=== PATIENT | male | born 1940 | race Caucasian/White ===

== ENCOUNTER 2021-03-01 11:43 | Emergency (ER) | payer OTHER, MEDICARE, SELFPAY ==
[2021-03-01] VITALS (18 sets, daily range): BP systolic 149–175; BP diastolic 80–95; PULSE 58–98; RESP 17–28; TEMP 36.8; O2SAT 86–98; BMI 22.4
--- NOTE | 2021-03-01 12:59 | XRR_ITS ---
PROCEDURE INFORMATION: Exam: XR Right Ribs with PA Chest Exam date and time: 03/01/2021 12:59 PM Age: 80 years old Clinical indication: Chest wall pain and painful respiration; Right; Additional info: Sob/injury TECHNIQUE: Imaging protocol: XR Right ribs with PA chest. Views: 3 views COMPARISON: CR Chest 1 [place] [id number] 07/01/2017 5:52 PM FINDINGS: Lungs: Unremarkable. No consolidation. Pleural spaces: Unremarkable. No pleural effusion. No pneumothorax. Heart/Mediastinum: Unremarkable. No cardiomegaly. Bones/joints: Unremarkable. XR/XR ribs RT mn 3V w CXR1V [id number] IMPRESSION: No acute findings.
--- NOTE | 2021-03-01 13:01 | ECG_ITS ---
[facility] Test Date: 2021-03-01 Pat Name: Jean Carlos Morfin Department: Room: Gender: Male Global President: : 1940 Requested By: Chase Villasenor Order Number: [id number] Cole MD: Chantel Camp M.D. Measurements Intervals [place] Rate: 62 P: 42 HI: 202 QRS: 7 QRSD: 101 T: 38 QT: 416 QTc: 425 Interpretive Statements SINUS RHYTHM Compared to ECG 07/01/2017 17:39:37 No significant changes Electronically Signed On 03-02-2021 17:40:19 CDT by Chantel Camp M.D. [id number] f
--- NOTE | 2021-03-01 13:01 | ED_ITS ---
HPI - SOB/Dyspnea General: Chief Complaint: Shortness of Breath/Dyspnea Stated Complaint: Trouble breathing Time Seen by Provider: 03/01/21 12:56 History of Present Illness: HPI Narrative: This patient is an 80-year-old male who states that he had a fall 1 week ago and is complaining of right rib pain causing him to be short of breath. Patient states that shortness of breath is continued. No obvious signs of bruising on the patient but patient does have p ain with palpation of the ribs. Patient denies fever. Denies cough. Will do medical evaluation treat as needed. MD elicited complaint: shortness of breath and pain with inspiration Onset (ago): week(s) Context: trauma/injury Timing: constant Severity: moderate Exacerbating factors: movement Relieving factors: nothing Associated symptoms: Deny abdominal pain, chest pain, extremity pain, fever(s), lightheadedness, nausea, palpitations or vomiting Review of Systems General: Reports: 10 or more systems reviewed and unremarkable except in HPI and below Const: Denies: fever(s), chills, body aches or fatigue Eyes: Denies: change in vision or blurry vision ENMT: Denies: throat pain, hoarseness or mouth pain Card: Denies: chest pain, palpitations, irregular heart rhythm, edema, swelling of feet/ankles or lightheadedness Resp: Reports: dyspnea and other (Rib Pain); Denies: productive cough, non-productive cough, wheezing or pain on inspiration GI: Denies: abdominal pain, nausea or vomiting : Denies: flank pain, dysuria, urinary frequency, urinary urgency or urinary hesitancy Musc: Denies: neck pain, back pain, extremity pain, extremity swelling, joint pain, joint swelling, joint redness, joint warmth or limited range of motion Skin/Breast: Denies: rash, pruritus, erythema or skin tenderness Neuro: Denies: headache(s), numbness in extremities or weakness in extremities Psych: Denies: anxiety or depression Physical Exam Const: COMMON NORMALS: no acute distress, average body habitus, patient oriented x3, no limitations, healthy appearing, alert and well nourished HENMT: COMMON NORMALS: normocephalic, atraumatic, hearing grossly normal bilaterally, external ears normal, EAC's normal, TM's normal bilaterally, Normal external nose present, Normal nasal mucous membranes and turbinates present, moist oral mucous membranes, oropharynx normal, dentition normal and gingiva normal HEAD & SCALP: normocephalic and atraumatic NOSE: Normal external nose present and Normal nasal mucous membranes and turbinates present EXTERNAL EAR: Yes external ears normal EXTERNAL AUDITORY CANAL: EAC's normal TYMPANIC MEMBRANE: TM's normal bilaterally Neck/C-Spine: COMMON NORMALS: full ROM, no lymphadenopathy, supple, no meningeal signs, no JVD, Thyroid normal and No carotid bruits THYROID: Thyroid normal Chest: COMMONS NORMALS: normal inspection of the chest, normal inspection of the breasts and normal palpation of the breasts CHEST: Yes tenderness rib (Right-sided rib pain.) Breast/axilla inspection: Yes normal inspection of the breasts BREAST/AXILLA PALPATION: Yes normal palpation of the breasts Resp: COMMON NORMALS: normal respiratory effort, No retractions, No use of accessory muscles, clear to auscultation bilaterally and percussion normal AUSCULTATION: clear to auscultation bilaterally PERCUSSION: percussion normal Cardio: COMMON NORMALS: no JVD, regular rate, regular rhythm, S1 normal heart sound present, S2 normal heart sound present, No gallops present (Cardio), No clicks present (Cardio), No murmurs present (Cardio), No rub (Cardio) and Peripheral pulses 2+ throughout RATE: regular rate RHYTHM: regular rhythm HEART SOUNDS: S1 normal heart sound present and S2 normal heart sound present PERIPHERAL PULSES: Peripheral pulses 2+ throughout GI: COMMON NORMALS: Normal to inspection, nondistended, normoactive bowel sounds present, Soft to palpation, non-tender, No hepatosplenomegaly present, no masses and no bruits PALPATION: Yes Soft to palpation and Yes No hepatosplenomegaly present : COMMON NORMALS: Yes no CVA tenderness BLADDER/KIDNEY EXAM: Yes no CVA tenderness Back/Pelvis: COMMON NORMALS: no CVA tenderness, thoracic and lumbar spine normal to inspection, no thoracic nor lumbar tenderness, thoraco-lumbar ROM normal and straight leg raise negative bilaterally Extremity: COMMON NORMALS: normal to inspection, full ROM, capillary refill normal, no joint enlargement, no clubbing, cyanosis or edema, no calf tenderness and no pedal edema Neuro: COMMON NORMALS: patient oriented x3 SENSORIUM/ORIENTATION: Yes alert MENINGEAL SIGNS: Yes no meningeal signs Course Reevaluation(s): Reevaluation #1: Elevated D-dimer. Will order CT angio rule out PE Time: 15:10 Reevaluation #2: Negative evaluation in the emergency department. Patient is to take medication as instructed. Follow-up primary care physician in 2 to 3 days. Continue all home medications. Time: 16:38 Vital Signs: Vital signs: Vital Signs Temperature 98.2 F 03/01/21 11:50 Pulse Rate 58 L 03/01/21 15:00 Respiratory Rate 28 H 03/01/21 13:17 Blood Pressure 156/81 03/01/21 15:00 Pulse Oximetry 96 03/01/21 15:00 MDM - SOB/Dyspnea MDM Narrative: Medical decision making narrative: This patient is an 80-year-old male who states that he had a fall 1 week ago and is complaining of right rib pain causing him to be short of breath. Patient states that shortness of breath is continued. No obvious signs of bruising on the patient but patient does have pain with palpation of the ribs. Patient denies fever. Denies cough. Will do medical evaluation treat as needed. Negative evaluation in the emergency department. Patient is to take medication as instructed. Follow-up primary care physician in 2 to 3 days. Continue all home medications. Medical Records: Attestation: I reviewed the patient's medical records. Lab Data: Attestation: I reviewed the patient's lab results. Labs: Lab Results 03/01/21 03/01/21 03/01/21 Range/Units 13:56 13:56 13:56 WBC 3.9 L (4.0-10.0) 10^3/ uL RBC 3.95 L (4.1-5.3) 10^6/u L Hgb 11.1 L (11.7-16.6) g/dL Hct 34.1 L (42.0-52.0) % MCV 86.3 (80-94) fl MCH 28.1 (28.0-34.0) pg MCHC 32.6 (30.0-36.0) g/dL RDW 14.4 (12.1-15.1) % Plt Count 227 (130-400) 10^3/c mm MPV 8.4 (7.4-10.4) fL Neut % (Auto) 35.1 % Lymph % (Auto) 51.5 % [place] % (Auto) 11.6 % Eos % (Auto) 1.0 % Baso % (Auto) 0.3 % Neut # (Auto) 1.36 L (1.8-7.7) 10^3/u L Lymph # (Auto) 2.0 (0.8-4.8) 10^3/u L [place] # (Auto) 0.5 (0.2-0.9) 10^3/u L Eos # (Auto) 0.0 (0.0-0.8) 10^3/u L Baso # (Auto) 0.0 (0.0-0.1) 10^3/u L Nucleated RBC % (a uto) 0 % Nucleated RBCs # 0.0 /100WBC PT 15.30 H (12.1-14.9) SECO NDS INR 1.18 (0.8-1.2) APTT 31.8 (23.9-36.7) SECO NDS D-Dimer 1.69 H (0-0.59) ug/mIFE U Sodium 135 L (136-145) mmol/L Potassium 3.5 (3.5-5.1) mmol/L Chloride 95 L (98-107) mmol/L Carbon Dioxide 31 H (22-29) mmol/L Anion Gap 12.5 (5-19) BUN 6 L (8-23) mg/dL Creatinine 0.7 (0.7-1.2) mg/dL GFR Calculation Not Reportable Glucose 103 (65-115) mg/dL Calculated Osmolal ity 278 L (285-295) mOsm/k g Calcium 8.6 (8.5-10.5) mg/dL Total Bilirubin 0.5 (0.15-1.2) mg/dL AST 26 (0-40) U/L ALT 14 (0-41) U/L Alkaline Phosphata se 100 (40-130) IU/L Troponin T Baselin e (0-15) ng/L NT-Pro-B Natriuret Pep 178 (0-450) pg/mL Total Protein 7.6 (6.6-8.7) g/dL Albumin 3.6 (3.5-5.2) g/dL Globulin 4.0 (1.3-4.6) g/dL 03/01/21 Range/Units 13:56 WBC (4.0-10.0) 10^3/ uL RBC (4.1-5.3) 10^6/u L Hgb (11.7-16.6) g/dL Hct (42.0-52.0) % MCV (80-94) fl MCH (28.0-34.0) pg MCHC (30.0-36.0) g/dL RDW (12.1-15.1) % Plt Count (130-400) 10^3/c mm MPV (7.4-10.4) fL Neut % (Auto) % Lymph % (Auto) % [place] % (Auto) % Eos % (Auto) % Baso % (Auto) % Neut # (Auto) (1.8-7.7) 10^3/u L Lymph # (Auto) (0.8-4.8) 10^3/u L [place] # (Auto) (0.2-0.9) 10^3/u L Eos # (Auto) (0.0-0.8) 10^3/u L Baso # (Auto) (0.0-0.1) 10^3/u L Nucleated RBC % (a uto) % Nucleated RBCs # /100WBC PT (12.1-14.9) SECO NDS INR (0.8-1.2) APTT (23.9-36.7) SECO NDS D-Dimer (0-0.59) ug/mIFE U Sodium (136-145) mmol/L Potassium (3.5-5.1) mmol/L Chloride (98-107) mmol/L Carbon Dioxide (22-29) mmol/L Anion Gap (5-19) BUN (8-23) mg/dL Creatinine (0.7-1.2) mg/dL GFR Calculation Glucose (65-115) mg/dL Calculated Osmolal ity (285-295) mOsm/k g Calcium (8.5-10.5) mg/dL Total Bilirubin (0.15-1.2) mg/dL AST (0-40) U/L ALT (0-41) U/L Alkaline Phosphata se (40-130) IU/L Troponin T Baselin e 15 (0-15) ng/L NT-Pro-B Natriuret Pep (0-450) pg/mL Total Protein (6.6-8.7) g/dL Albumin (3.5-5.2) g/dL Globulin (1.3-4.6) g/dL Imaging Data^: CXR: Attestation: I personally reviewed and interpreted this imaging study as follows: My impression: Negative for acute findings. CT Chest: Attestation: I personally reviewed and interpreted this imaging study as follows: Radiologist's impression: IMPRESSION: 1. Negative for proximal pulmonary embolism. 2. Hepatic cyst stable since prior examination 3. Status post cholecystectomy 4. Otherwise negative examination EKG Data^: EKG 1: Attestation: I personally reviewed and interpreted this EKG as follows: EKG Interpretation Date: 03/01/21 EKG interpretation time: 13:40 Prior EKG tracings: not available for review Interpretation: Sinus rhythm normal EKG heart rate 62 EKG 2: Attestation: I personally reviewed and interpreted this EKG as follows: EKG Interpretation Date: 03/01/21 EKG interpretation time: 15:07 Prior EKG tracings: available for review Interpretation: Sinus bradycardia rate 58 otherwise normal EKG Discharge Plan Discharge Patient Disposition: Home Clinical Impression: Rib pain on right side Condition: Stable Prescriptions: New benzonatate [Tessalon Perles] 100 mg capsule 100 mg PO BID PRN (Reason: cough) Qty: 20 RF: 0 Discharge Orders: Discharge ED (Routine); Ordered 03/01/21 Ordered By: Chase Villasenor Discharge Diet: Advance as tolerated Discharge Activity: Resume usual activity Patient Instructions: Opioid Safety Activity Restrictions/Additional Instructions: Negative evaluation in the emergency department. Patient is to take medication as instructed. Follow-up primary care physician in 2 to 3 days. Continue all home medications. Coding Level of Care Code ED Marketing Research Analyst for Chg Fwd Exam Comprehensive
[2021-03-01] MEDS: acetaminophen 325 mg Tablet 650 MG PO (13:14)
[2021-03-01 14:04] LABS: Basophils % 0.3 %; Hematocrit 34.1 % (42.0-52.0); Hemoglobin 11.1 g/dL (11.7-16.6); Lymphocytes % 51.5 %; Mean Corpuscular HGB Conc 32.6 g/dL (30.0-36.0); Mean Corpuscular Hemoglobin 28.1 pg (28.0-34.0); Mean Corpuscular Volume 86.3 fl (80-94); Mean Platelet Volume 8.4 fL (7.4-10.4); Monocytes # 0.5 10^3/uL (0.2-0.9); Monocytes % 11.6 %; Neutrophils # 1.36 10^3/uL (1.8-7.7); Neutrophils % 35.1 %; Nucleated Red Blood Cells % 0 %; Platelet Count 227 10^3/cmm (130-400); Red Blood Count 3.95 10^6/uL (4.1-5.3); Red Cell Distribution Width 14.4 % (12.1-15.1); White Blood Count 3.9 10^3/uL (4.0-10.0)
[2021-03-01 14:21] LABS: INR 1.18 (0.8-1.2)
[2021-03-01 14:22] LABS: Partial Thromboplastin Time 31.8 SECONDS (23.9-36.7)
[2021-03-01 14:25] LABS: D Dimer 1.69 ug/mIFEU (0-0.59)
[2021-03-01 14:28] LABS: Troponin(5th) Baseline 15 ng/L (0-15)
[2021-03-01 14:37] LABS: Alanine Aminotransferase 14 U/L (0-41); Albumin Level 3.6 g/dL (3.5-5.2); Alkaline Phosphatase 100 IU/L (40-130); Anion Gap 12.5 (5-19); Aspartate Amino Transferase 26 U/L (0-40); Blood Urea Nitrogen 6 mg/dL (8-23); Calcium 8.6 mg/dL (8.5-10.5); Carbon Dioxide 31 mmol/L (22-29); Chloride 95 mmol/L (98-107); Glucose 103 mg/dL (65-115); NT Pro B Type Natriuretic Pept 178 pg/mL (0-450); Osmolality Calculated 278 mOsm/kg (285-295); Potassium 3.5 mmol/L (3.5-5.1); Sodium 135 mmol/L (136-145); Total Bilirubin 0.5 mg/dL (0.15-1.2); Total Protein 7.6 g/dL (6.6-8.7)
--- NOTE | 2021-03-01 15:01 | ECG_ITS ---
[facility] Test Date: 2021-03-01 Pat Name: Jean Carlos Morfin Department: Room: Gender: Male Risk Control Specialist: : 1940 Requested By: Chase Villasenor Order Number: [id number] Cole MD: Chantel Camp M.D. Measurements Intervals [place] Rate: 58 P: 35 GA: 199 QRS: 7 QRSD: 108 T: 34 QT: 412 QTc: 407 Interpretive Statements SINUS BRADYCARDIA Compared to ECG 03/01/2021 13:40:15 Sinus rhythm no longer present Electronically Signed On 03-02-2021 18:10:21 CDT by Chantel Camp M.D. [id number] f
--- NOTE | 2021-03-01 15:08 | CTR_ITS ---
PROCEDURE INFORMATION: Exam: CTA Chest With Contrast Exam date and time: 03/01/2021 3:08 PM Age: 80 years old Clinical indication: Injury or trauma; Blunt trauma (contusions or hematomas); Patient HX: Fall 1 week ago C/O R rib pain w SOB and elev d-dimer; Additional info: SOB with elevated ddimer TECHNIQUE: Imaging protocol: Computed tomographic angiography of the chest with contrast. 3D rendering (Not supervised by radiologist): MIP and/or 3D reconstructed images were created by the technologist. Radiation optimization: All CT scans at this facility use at least one of these dose optimization techniques: automated exposure control; mA and/or kV adjustment per patient size (includes targeted exams where dose is matched to clinical indication); or iterative reconstruction. Contrast material: OMNI 350; Contrast volume: 95 ml; Contrast route: INTRAVENOUS (IV); COMPARISON: CTA Chest-Pulmonary Emb [id number] 03/10/2017 11:52 AM RADIATION DOSE METRICS: Total DLP (mGy-cm): 263.18 FINDINGS: Pulmonary arteries: Normal. No pulmonary emboli. Aorta: Unremarkable. No aortic aneurysm. No aortic dissection. Lungs: Unremarkable. No consolidation. No masses. Pleural spaces: Unremarkable. No pneumothorax. No pleural effusion. Heart: Unremarkable. No cardiomegaly. No pericardial effusion. Lymph nodes: Unremarkable. No enlarged lymph nodes. Liver: There is a circumscribed hepatic cyst in the dome of the liver measuring 24.5 mm. This finding is stable since prior examination Gallbladder and bile ducts: Evidence of cholecystectomy is seen. Bones/joints: Unremarkable. No acute fracture. Soft tissues: Unremarkable. CT/CT angio chest PE protcl [id number] IMPRESSION: 1. Negative for proximal pulmonary embolism. 2. Hepatic cyst stable since prior examination 3. Status post cholecystectomy 4. Otherwise negative examination Radiation Dose CTDIVOL = (mGy): DLP = 263.18 (mGy-cm)
[2021-03-01] MEDS: sodium chloride 0.9% 500 ML IV (15:13)
[2021-03-01] MEDS: iohexol 350 mg/mL 100 mL Btl IV (16:12)
[2021-03-01 16:55] LABS: Troponin 5 2HR 14.18 ng/L (0-15)
[2021-03-01 16:59] LABS: Troponin 5 2HR Delta -0.82 ABS# (0-10)
== END 2021-03-01 17:26 | disposition home or self-care (01) ==
PROVIDERS: Emergency Provider Emergency Medicine
DX: R07.81 Pleurodynia (principal)
CPT/HCPCS: 36415; 71101; 71275; 80053; 83880; 84484; 85025; 85378; 85610; 85730; 93005; 96360; 99284; J7040; Q9967

== ENCOUNTER 2022-01-25 08:43 | Emergency (ER) | payer OTHER, SELFPAY ==
[2022-01-25 09:03] VITALS: BP 121/69; PULSE 108; RESP 20; TEMP 36.6; O2SAT 98; BMI 19.5
--- NOTE | 2022-01-25 09:21 | W.ED.MALEGU ---
HPI - Male Genitourinary General: Chief complaint: Urogenital-Male Stated complaint: unable to urinate Time Seen by Provider: 01/25/22 08:45 Source: patient Mode of arrival: ambulatory History of Present Illness: 81-year-old male presents emergency room with complaints of difficulty urinating. States he has not been able to urinate since yesterday morning despite efforts. He is having increased he is severe abdominal pain and pelvic cramping. He had this previously several years ago and required a catheter. He denies any fever sweats chills flank pain no dysuria urgency or frequency prior to cessation of urination. No fever sweats or chills MD Complaint: other (Unable to urinate) Onset (ago): day(s) Duration: constant Relieving factors: none Exacerbating factors: movement Context: new medication and recent surgery Associated symptoms: Reports urinary retention; Deny dysuria, nausea or vomiting Review of Systems Const: Denies: fever(s), chills, body aches, change in appetite, fatigue or malaise ENMT: Denies: throat pain, ear or mastoid pain, nasal discharge or nasal congestion Card: Denies: chest pain, edema, dyspnea on exertion or orthopnea Resp: Denies: dyspnea, productive cough or non-productive cough GI: Denies: abdominal pain, nausea, vomiting, hematemesis, coffee ground emesis, diarrhea, constipation, bloating, hematochezia or melena : Denies: flank pain, dysuria, urinary frequency or urinary urgency Skin/Breast: Denies: rash or pruritus ON LICENSE OF [facility] ED PFSH: Medical History (Updated 01/25/22 @ 11:[address] DO) Anxiety Cerebral infarction Hearing loss Hyperlipidemia Hypothyroidism Vitamin B-complex deficiency Social History Smoking and tobacco status: current every day smoker Physical Exam Const: GENERAL APPEARANCE: cooperative and comfortable ORIENTATION/CONSCIOUSNESS: Yes awake, Yes oriented to person, Yes oriented to place and Yes oriented to time HENMT: COMMON NORMALS: normocephalic, atraumatic and hearing grossly normal bilaterally HEAD & SCALP: normocephalic and atraumatic Resp: COMMON NORMALS: normal respiratory effort, No retractions, No use of accessory muscles and clear to auscultation bilaterally AUSCULTATION: clear to auscultation bilaterally Cardio: COMMON NORMALS: regular rate, regular rhythm and No murmurs present (Cardio) RATE: regular rate RHYTHM: regular rhythm GI: COMMON NORMALS: No hepatosplenomegaly present AUSCULTATION: Yes normoactive bowel sounds PALPATION: Yes Tenderness to palpation present (GI) (bladder palpable at umbilicus) Details: other, No Guarding due to palpation present (GI) and Yes No hepatosplenomegaly present Extremity: COMMON NORMALS: normal to inspection, capillary refill normal, no clubbing, cyanosis or edema, no calf tenderness and no pedal edema Neuro: SENSORIUM/ORIENTATION: Yes oriented to person, Yes oriented to place and Yes oriented to time Skin: COMMON NORMALS: no rashes or lesions noted GENERAL SKIN EXAM: no rashes or lesions noted Course Vital Signs: Vital signs: Vital Signs Temperature 97.9 F 01/25/22 09:03 Pulse Rate 86 01/25/22 12:11 Respiratory Rate 15 01/25/22 12:11 Blood Pressure 120/72 01/25/22 12:11 Pulse Oximetry 99 01/25/22 12:11 MDM - Male Medical Decision Making Symptoms resolved after placement of Brooks catheter UA is negative. CBC CMP reviewed discussed with patient discharged home with leg bag start on Flomax follow-up with Dr. San Medical Records I reviewed the patient's medical records. Lab Data I reviewed the patient's lab results. : 01/25/22 09:26 01/25/22 09:26 Laboratory Results WBC 6.8 10^3/uL (4.0-10.0) 01/25/22 09:26 RBC 4.18 10^6/uL (4.1-5.3) 01/25/22 09:26 Hgb 11.7 g/dL (11.7-16.6) 01/25/22 09:26 Hct 37.6 % (42.0-52.0) L 01/25/22 09:26 MCV 90.0 fl (80-94) 01/25/22 09:26 MCH 28.0 pg (28.0-34.0) 01/25/22 09: MCHC 31.1 g/dL (30.0-36.0) 01/25/22 09: RDW 17.0 % (12.1-15.1) H 01/25/22 09:26 Plt Count 233 10^3/cmm (130-400) 01/25/22 09:26 MPV 10.0 fL (7.4-10.4) 01/25/22 09:26 Neut % (Auto) 38.0 % 01/25/22 09:26 Lymph % (Auto) 48.9 % 01/25/22 09:26 [place] % (Auto) 11.4 % 01/25/22 09:26 Eos % (Auto) 0.7 % 01/25/22 09:26 Baso % (Auto) 0.3 % 01/25/22 09:26 Neut # (Auto) 2.59 10^3/uL (1.8-7.7) 01/25/22 09:26 Lymph # (Auto) 3.3 10^3/uL (0.8-4.8) 01/25/22 09:26 [place] # (Auto) 0.8 10^3/uL (0.2-0.9) 01/25/22 09:26 Eos # (Auto) 0.1 10^3/uL (0.0-0.8) 01/25/22 09:26 Baso # (Auto) 0.0 10^3/uL (0.0-0.1) 01/25/22 09:26 Nucleated RBC % (auto) 0 % 01/25/22 09: Nucleated RBCs # 0.0 /100WBC 01/25/22 09:26 Sodium 138 mmol/L (136-145) 01/25/22 09:26 Potassium 4.3 mmol/L (3.5-5.1) 01/25/22 09:26 Chloride 95 mmol/L (98-107) L 01/25/22 09:26 Carbon Dioxide 30 mmol/L (22-29) H 01/25/22 09:26 Anion Gap 17.3 (5-19) 01/25/22 09:26 BUN 19 mg/dL (8-23) 01/25/22 09:26 Creatinine 0.7 mg/dL (0.7-1.2) 01/25/22 09:26 GFR Calculation Not Reportable 01/25/22 09:26 Glucose 119 mg/dL (65-115) H 01/25/22 09:26 Calculated Osmolality 289 mOsm/kg (285-295) 01/25/22 09:26 Calcium 9.6 mg/dL (8.5-10.5) 01/25/22 09:26 Urine Color Yellow (Yellow) 01/25/22 10:25 Urine Appearance Cloudy (CLEAR) 01/25/22 10:25 Urine pH 8 (5-7) H 01/25/22 10:25 Ur Specific [place] 1.010 (1.005-1.030) 01/25/22 10:25 Urine Protein Neg (Negative) 01/25/22 10:25 Urine Glucose (UA) Norm (Normal) 01/25/22 10:25 Urine Ketones 1+ (Negative) H 01/25/22 10:25 Urine Blood Neg (Negative) 01/25/22 10:25 Urine Nitrate Negative (Negative) 01/25/22 10:25 Urine Bilirubin Neg (Negative) 01/25/22 10:25 Prot Sulfosalicylic Acd Negative (Negative) 01/25/22 10:25 Urine Urobilinogen Norm mg/dL (Negative) 01/25/22 10:25 Ur Leukocyte Esterase Negative (Negative) 01/25/22 10:25 Urine RBC None /hpf (0-2) 01/25/22 10:25 Urine WBC Rare /hpf (0-5) 01/25/22 10:25 Ur Squamous Epith Cells Rare /hpf (0-5) 01/25/22 10:25 Amorphous Sediment 2+ /hpf 01/25/22 10:25 Urine Bacteria Trace /hpf (NONE) 01/25/22 10:25 Discharge Plan Discharge Patient Disposition: Home Clinical Impression: Acute retention of urine Condition: Stable Prescriptions: New tamsulosin 0.4 mg capsule 0.4 mg PO DAILY Qty: 30 0RF No Action Ensure Plus 0.05-1.5 gram-kcal/mL liquid PO BID aspirin 81 mg tablet,delayed release (DR/EC) 81 mg PO DAILY atorvastatin 80 mg tablet 80 mg PO DAILY carbamazepine 200 mg tablet 200 mg PO .1/2 tab BID cholecalciferol (vitamin D3) 50 mcg (2,000 unit) capsule 50 mcg PO DAILY ferrous sulfate 325 mg (65 mg iron) tablet 325 mg PO DAILY folic acid 1 mg tablet 1 mg PO DAILY isosorbide mononitrate 30 mg tablet extended release 24 hr 30 mg PO DAILY levetiracetam 750 mg tablet 750 mg PO BID mirtazapine 15 mg tablet 15 mg PO .1/2 at bedtime omeprazole 20 mg capsule,delayed release(DR/EC) 20 mg PO DAILY pentoxifylline 400 mg tablet extended release 400 mg PO TID Rx Instructions: must administer with a meal/food trazodone 100 mg tablet 100 mg PO BEDTIME Discharge Orders: Discharge ED (Routine); Ordered 01/25/22 Ordered By: Lane Wills Discharge Diet: Usual diet Discharge Activity: Resume usual activity Patient Instructions: Opioid Safety Activity Restrictions/Additional Instructions: manager part will make arrangements for follow-up with Dr. San regarding urinary urinary retention and the Brooks catheter. Coding Level of Care Code ED Industrial Seamstress for Cyn Fwd Exam Detailed
[2022-01-25 09:35] LABS: Eosinophils # 0.1 10^3/uL (0.0-0.8); Nucleated Red Blood Cells % 0 %
[2022-01-25 09:43] LABS: Basophils % 0.3 %; Eosinophils % 0.7 %; Hematocrit 37.6 % (42.0-52.0); Hemoglobin 11.7 g/dL (11.7-16.6); Lymphocytes # 3.3 10^3/uL (0.8-4.8); Lymphocytes % 48.9 %; Mean Corpuscular HGB Conc 31.1 g/dL (30.0-36.0); Monocytes # 0.8 10^3/uL (0.2-0.9); Monocytes % 11.4 %; Neutrophils # 2.59 10^3/uL (1.8-7.7); Platelet Count 233 10^3/cmm (130-400); Red Blood Count 4.18 10^6/uL (4.1-5.3); White Blood Count 6.8 10^3/uL (4.0-10.0)
[2022-01-25 09:58] LABS: Anion Gap 17.3 (5-19); Blood Urea Nitrogen 19 mg/dL (8-23); Calcium 9.6 mg/dL (8.5-10.5); Carbon Dioxide 30 mmol/L (22-29); Chloride 95 mmol/L (98-107); Glucose 119 mg/dL (65-115); Osmolality Calculated 289 mOsm/kg (285-295); Potassium 4.3 mmol/L (3.5-5.1); Sodium 138 mmol/L (136-145)
[2022-01-25 10:20] LABS: Slide Review Slide Review Perform
[2022-01-25 10:47] LABS: Add Urine Microscopic? YES; Bilirubin Urine Neg (Negative); Blood Urine Neg (Negative); Glucose Urine UA Norm (Normal); Ketones Urine 1+ (Negative); Leukocyte Esterase Urine Negative (Negative); Nitrate Urine Negative (Negative); Protein Urine Neg (Negative); Sulfosalicylic Acid Urine Negative (Negative); Urine Appearance Cloudy (CLEAR); Urine Color Yellow (Yellow); Urobilinogen Urine Norm (Negative); pH Urine 8 (5-7)
[2022-01-25 10:48] LABS: Amorphous Sediment Urine 2+ /hpf; Bacteria Urine TRACE /hpf; Squamous Epithelial Cell Urine RARE /hpf (0-5); WBC Urine RARE /hpf (0-5)
[2022-01-25 10:49] LABS: Add Urine Culture? No
[2022-01-25 12:11] VITALS: BP 120/72; PULSE 86; RESP 15; O2SAT 99
--- NOTE | 2022-01-27 11:45 | DCPLANNER ---
Addendum entered by Liliana Amado 02/26/22 08:15: Patients appointment was rescheduled Addendum entered by Liliana Amado 02/06/22 08:07: Patient has a follow up appointment scheduled for Wednesday, February 09, 2022 at 11:[address] San at urology. Clinic will call patient with appointment information. Original Note: technology manager had message to schedule a follow up appointment for patient with urology. technology manager sent patients information to the front office staff at urology. Patients information will be printed and reviewed. Clinic will call patient with appointment information.
== END 2022-01-25 12:12 | disposition home or self-care (01) ==
PROVIDERS: Emergency Provider Family Medicine
DX: R33.9 Retention of urine, unspecified (principal); Z79.82 Long term (current) use of aspirin; E78.5 Hyperlipidemia, unspecified; F17.210 Nicotine dependence, cigarettes, uncomplicated
CPT/HCPCS: 51702; 80048; 81001; 85025; 99283

== ENCOUNTER 2022-02-12 10:38 | Emergency (ER) | payer OTHER, SELFPAY ==
[2022-02-12 10:59] VITALS: BP 111/70; PULSE 90; RESP 18; TEMP 36.4; O2SAT 95; BMI 19.8
--- NOTE | 2022-02-12 12:31 | W.ED.GENADLT ---
HPI - General Adult General: Chief complaint: Urogenital-Male Stated complaint: cath is leaking and painful Time Seen by Provider: 02/12/22 12:23 History of Present Illness: Patient is an 81-year-old male with history of urinary retention s/p urinary schulz who presents emergency room for complaints of leakage around his Schulz x 1 wweek. Patient is requesting that his Schulz be taken out. For the last 3 days, patient has had burning when he urinates. She denies any flank pain, nausea/vomiting, abdominal pain, diarrhea melena medic easier. Patient denies any cough, no sore throat. Patient denies any hematuria. Onset: 3 days of dysuria, 1 week of leakage Duration:ongoing Location:home Severity:moderate Associated symptoms: Deny chest pain, dyspnea, nausea, rash, palpitations or vomiting Review of Systems Const: Denies: fever(s) or chills Eyes: Denies: change in vision ENMT: Denies: mouth pain Card: Denies: chest pain or palpitations Resp: Denies: dyspnea or non-productive cough GI: Denies: abdominal pain, nausea, vomiting or diarrhea : Reports: other (+leakage around the schulz insertion site); Denies: dysuria Musc: Denies: extremity pain Skin/Breast: Denies: rash or new lesions Neuro: Denies: weakness in extremities Psych: Reports: other (Normal mood) Ismael/Lymph: Denies: easy bruising [facility] ED PFSH: Medical History Anxiety Cerebral infarction Hearing loss Hyperlipidemia Hypothyroidism Urinary retention Vitamin B-complex deficiency Social History Smoking and tobacco status: current every day smoker Physical Exam Const: COMMON NORMALS: alert HENMT: COMMON NORMALS: atraumatic HEAD & SCALP: atraumatic MOUTH: moist mucous membranes not abnormal Eye: COMMON NORMALS: EOMs intact bilaterally and conjunctivae normal CONJUNCTIVA: Yes conjunctivae normal Neck/C-Spine: COMMON NORMALS: full ROM and supple Resp: COMMON NORMALS: normal respiratory effort and clear to auscultation bilaterally AUSCULTATION: clear to auscultation bilaterally Cardio: COMMON NORMALS: regular rate RATE: regular rate GI: COMMON NORMALS: Soft to palpation and non-tender PALPATION: Yes Soft to palpation OTHER: No focal TTP. NO guarding rebound, guarding, rigidity. No CVA tenderness to percussion. Neg Hackett/Neg McBurney's point tenderness, no suprabupic tenderness to palpation. : OTHER: 16Fr indwelling schulz intact Extremity: COMMON NORMALS: full ROM Neuro: SENSORIUM/ORIENTATION: Yes alert MOTOR EXAM: No Abnormal motor strength present and Other motor observations present (no focal motor deficits) Psych: COMMON NORMALS: speech normal SPEECH: Yes normal speech MOOD & AFFECT: Yes euthymic mood Course Vital Signs: Vital signs: Vital Signs Temperature 97.6 F 02/12/22 10:59 Pulse Rate 90 02/12/22 10:59 Respiratory Rate 18 02/12/22 10:59 Blood Pressure 111/70 02/12/22 10:59 Pulse Oximetry 95 02/12/22 10:59 Oxygen Delivery Me thod 02/12/22 10:59 MDM - General Adult Medical Decision Making Patient is an 81-year-old male with history of urinary retention s/p urinary schulz who presents emergency room for complaints of leakage around his Schulz x 1 week. Patient is requesting that his Schulz be taken out. Visit, patient has a 16 Japanese indwelling Schulz. Schulz has been taken out. Patient has had difficulty voiding without the Schulz. I have offered him a new Cshulz catheter for comfort. However at this time, patient would not like to be continually dependent on the Schulz. Patient was adamant that he does not want another Schulz. Because patient is at risk for urinary retention, and continued close and strict return precautions for any new or concerning symptoms of urinary retention. I have given patient follow up with our director of casework to be seen by our outpatient by Dr. San. Patient aware of a call from our director of casework to schedule for appointment(s) and verbalizes understanding of the importance of following up. Disposition: Discharge. Patient counseled regarding diagnostic impression, treatment plan. Patient given ED strict return precautions to return for continuation, worsening, or development of new symptoms. Instructed to f/u w/ Dr. San regarding symptoms today. Patient verbalized understanding. Discharge Plan Discharge Patient Disposition: Home Clinical Impression: H/O urinary retention Condition: Stable Prescriptions: No Action Ensure Plus 0.05-1.5 gram-kcal/mL liquid PO BID aspirin 81 mg tablet,delayed release (DR/EC) 81 mg PO DAILY atorvastatin 80 mg tablet 80 mg PO DAILY carbamazepine 200 mg tablet 200 mg PO .1/2 tab BID cholecalciferol (vitamin D3) 50 mcg (2,000 unit) capsule 50 mcg PO DAILY ferrous sulfate 325 mg (65 mg iron) tablet 325 mg PO DAILY folic acid 1 mg tablet 1 mg PO DAILY isosorbide mononitrate 30 mg tablet extended release 24 hr 30 mg PO DAILY levetiracetam 750 mg tablet 750 mg PO BID mirtazapine 15 mg tablet 15 mg PO .1/2 at bedtime omeprazole 20 mg capsule,delayed release(DR/EC) 20 mg PO DAILY pentoxifylline 400 mg tablet extended release 400 mg PO TID Rx Instructions: must administer with a meal/food trazodone 100 mg tablet 100 mg PO BEDTIME tamsulosin 0.4 mg capsule 0.4 mg PO DAILY Qty: 30 0RF Discharge Orders: Discharge ED (Routine); Ordered 02/12/22 Ordered By: Suzanna Plasencia Discharge Diet: Advance as tolerated Discharge Activity: Increase activity as tolerated Patient Instructions: Urinary Retention in Men (ED) Activity Restrictions/Additional Instructions: Our director of casework will have you follow-up with Dr. San in the next few days. You would be expected to have a phone call with our director of casework who will put you on the schedule. You can expect a call from us in the next 2-3 days. If you don't hear from us, call us back in the emergency room at [phone]. Coding Level of Care Code ED Guest Relations Officer for Cyn Fwmita Exam Comprehensive
--- NOTE | 2022-02-12 14:22 | PC.NURSE ---
Patient refused vitals and refused a schulz after patient couldn't urinate.
--- NOTE | 2022-02-13 10:27 | DCPLANNER ---
Addendum entered by Liliana Amado 03/05/22 07:48: Patient had a follow up appointment scheduled with urology - patient did attend appointment. Addendum entered by Liliana Amado 02/19/22 07:50: Patient has a follow up appointment scheduled for Wednesday, March 04, 2022 at 8:30 with Trisha Auguste at urology. Clinic will call patient with appointment information. Original Note: manager spanish had message to schedule a follow up appointment for patient with urology. manager spanish sent patients information to the front office staff at urology. Patients information will be printed and reviewed. Clinic will call patient with appointment information.
== END 2022-02-12 14:00 | disposition home or self-care (01) ==
PROVIDERS: Emergency Provider Emergency Medicine
DX: Z46.6 Encounter for fitting and adjustment of urinary device (principal); Z79.82 Long term (current) use of aspirin; E78.5 Hyperlipidemia, unspecified; F17.210 Nicotine dependence, cigarettes, uncomplicated
CPT/HCPCS: 99281

== ENCOUNTER → 2022-03-04 08:01 | Outpatient (BNVA) | payer OTHER, SELFPAY | PROVIDERS: Visit Provider Nurse Practitioner Family | DX: R33.9 Retention of urine, unspecified (principal) | CPT/HCPCS: 51798; 99203 ==

== ENCOUNTER 2022-10-08 16:56 | Emergency (ER) | payer OTHER, SELFPAY ==
[2022-10-08 16:59] VITALS: BP 142/76; PULSE 73; RESP 16; O2SAT 95; BMI 23.5
--- NOTE | 2022-10-08 17:44 | CTR_ITS ---
PROCEDURE INFORMATION: Exam: CT Lumbar Spine Without Contrast Exam date and time: 10/08/2022 5:57 PM Age: 82 years old Clinical indication: Low back pain; Additional info: Fall with back pain TECHNIQUE: Imaging protocol: Computed tomography of the lumbar spine without contrast. Radiation optimization: All CT scans at this facility use at least one of these dose optimization techniques: automated exposure control; mA and/or kV adjustment per patient size (includes targeted exams where dose is matched to clinical indication); or iterative reconstruction. REPORTING DATA: Count of CT and Cardiac NM exams in prior 12 months: This patient has received 0 known CTs and 0 known cardiac nuclear medicine studies in the 12 months prior to the current study. COMPARISON: No relevant prior studies available. RADIATION DOSE METRICS: Total DLP (mGy-cm): 843 FINDINGS: Bones/joints: No acute fracture. Normal alignment. Disc bulge at L4-L5 with at least moderate central canal stenosis at this level. Kidneys and ureters: Staghorn calculus within the pelvicaliceal system of the right kidney. Soft tissues: Unremarkable. CT/CT lumbar spine wo con* [id number] IMPRESSION: 1. No acute osseous abnormalities of the lumbar spine. 2. Staghorn calculus noted in the right kidney.
--- NOTE | 2022-10-08 17:44 | CTR_ITS ---
PROCEDURE INFORMATION: Exam: CT Head Without Contrast Exam date and time: 10/08/2022 5:53 PM Age: 82 years old Clinical indication: Injury or trauma; Fall; Blunt trauma (contusions or hematomas); Additional info: Falls TECHNIQUE: Imaging protocol: Computed tomography of the head without contrast. Radiation optimization: All CT scans at this facility use at least one of these dose optimization techniques: automated exposure control; mA and/or kV adjustment per patient size (includes targeted exams where dose is matched to clinical indication); or iterative reconstruction. REPORTING DATA: Count of CT and Cardiac NM exams in prior 12 months: This patient has received 0 known CTs and 0 known cardiac nuclear medicine studies in the 12 months prior to the current study. COMPARISON: CT head wo con* [id number] 03/05/2017 6:57 PM RADIATION DOSE METRICS: Total DLP (mGy-cm): 1125 FINDINGS: Brain: No hemorrhage. No edema. Moderate diffuse cerebral atrophy. Old lacunar infarcts noted in the right basal ganglia. No mass effect. Cerebral ventricles: No ventriculomegaly. Paranasal sinuses: Visualized sinuses are unremarkable. No fluid levels. Mastoid air cells: Visualized mastoid air cells are well aerated. Bones/joints: Unremarkable. No acute fracture. Soft tissues: Unremarkable. CT/CT head wo con* [id number] IMPRESSION: No acute intracranial abnormality.
--- NOTE | 2022-10-08 17:45 | W.ED.WEAKNES ---
HPI - Weakness General: Chief complaint: Weakness Stated complaint: DECLINE IN HEALTH Time Seen by Provider: 10/08/22 17:34 Source: patient, EMS and other (custodial report) Mode of arrival: EMS Limitations: no limitations History of Present Illness: This patient was transported to the emergency department because of several falls that have occurred since his admission to the longterm. The patient states that he is fallen twice and that is because when he gets out of bed he loses balance and falls. He denies any head trauma. He denies any loss of consciousness. He denies any syncope or prodrome to his falls. He states he does have low back pain which began after his most recent fall. He denies any other symptoms or injury at this time. Associated symptoms: Denies chest pain, chills, dysuria, easy bruising, fever(s), headache(s), nausea, syncope or vomiting Review of Systems Const: Denies: fever(s) or chills Eyes: Denies: change in vision ENMT: Denies: throat pain, odynophagia, nasal discharge or nasal congestion Card: Denies: chest pain, palpitations, irregular heart rhythm, syncope or pre-syncope GI: Denies: abdominal pain, nausea, vomiting or diarrhea : Denies: flank pain, difficulty urinating, dysuria or urinary frequency Musc: Reports: back pain; Denies: neck pain, extremity pain or extremity swelling Skin/Breast: Denies: rash Neuro: Reports: frequent falls; Denies: headache(s), numbness in extremities, weakness in extremities, dizziness or vertigo Ismael/Lymph: Denies: easy bruising or easy bleeding PFS ED PFSH: Medical History Anxiety BPH loc w urin obs/LUTS Cerebral infarction Hearing loss Hyperlipidemia Hypothyroidism Urinary retention Vitamin B-complex deficiency Surgical History History of tonsillectomy Hx of cholecystectomy Family History Father , AT AGE 75 No problems noted. Mother No problems noted. Social History Smoking and tobacco status: former smoker Alcohol intake: never Marital status: / Current occupational status: retired Physical Exam Narrative: EXAM NARRATIVE: The patient makes good eye contact communicates in a normal fashion and answers questions accurately. Const: COMMON NORMALS: average body habitus, patient oriented x3 and no limitations GENERAL APPEARANCE: comfortable ORIENTATION/CONSCIOUSNESS: Yes awake, Yes oriented to person and Yes oriented to place HENMT: COMMON NORMALS: normocephalic, atraumatic, Normal nasal mucous membranes and turbinates present, moist oral mucous membranes and oropharynx normal HEAD & SCALP: normocephalic and atraumatic FACE & SINUS: normal facial exam and face symmetric NOSE: Normal nasal mucous membranes and turbinates present Eye: COMMON NORMALS: Equal, round and reactive pupils present, EOMs intact bilaterally and conjunctivae normal CONJUNCTIVA: Yes conjunctivae normal PUPIL: Yes Equal, round and reactive pupils present Neck/C-Spine: COMMON NORMALS: no lymphadenopathy and No carotid bruits CERVICAL SPINE: Yes cervical ROM normal, No Cervical spine tenderness, No step off deformity and No Paracervical muscle tenderness OTHER: He is able to range his neck in all normal range of motion without difficulty or discomfort. There is no midline tenderness or step-off. Chest: COMMONS NORMALS: normal inspection of the chest and normal palpation of entire chest wall Resp: COMMON NORMALS: normal respiratory effort, No use of accessory muscles and clear to auscultation bilaterally AUSCULTATION: clear to auscultation bilaterally Cardio: COMMON NORMALS: regular rate, regular rhythm, No murmurs present (Cardio) and Peripheral pulses 2+ throughout RATE: regular rate RHYTHM: regular rhythm PERIPHERAL PULSES: Peripheral pulses 2+ throughout GI: COMMON NORMALS: Normal to inspection, nondistended, normoactive bowel sounds present, Soft to palpation and non-tender PALPATION: Yes Soft to palpation : COMMON NORMALS: Yes no CVA tenderness BLADDER/KIDNEY EXAM: Yes no CVA tenderness Back/Pelvis: COMMON NORMALS: no CVA tenderness THORACIC SPINE/UPPER BACK: Yes normal to inspection, Yes thoracic ROM normal and No thoracic spinal tenderness LUMBAR SPINE/LOWER BACK: Yes lumbar spinal tenderness (Mild tenderness in the located in the lumbar region predominantly in the so) and Yes straight leg raise negative bilaterally PELVIS: Yes no pain with anterior-posterior compression and Yes no pain with lateral compression SACROILIAC JOINTS: Yes SI joints normal Extremity: COMMON NORMALS: normal to inspection, full ROM, capillary refill normal, no calf tenderness and no pedal edema NARRATIVE EXTREMITY EXAM: Extremity examination reveals no evidence of deformity, normal range of motion, no ecchymosis. Neuro: COMMON NORMALS: patient oriented x3, moves all extremities, no focal motor deficits and no sensory deficits noted SENSORIUM/ORIENTATION: Yes oriented to person and Yes oriented to place CRANIAL NERVES: Yes CN normal except as noted Psych: COMMON NORMALS: mental status grossly normal Skin: COMMON NORMALS: no rashes or lesions noted and turgor normal GENERAL SKIN EXAM: no rashes or lesions noted and turgor normal Course Reevaluation(s): Reevaluation #1: The patient is remained clinically stable with normal vital signs. He again remains very responsive engaging and interactive without any evidence of affected mental status at the time of this examination. No new or focal findings. He desires to be discharged back to his normal domicile. Time: 21:04 Vital Signs: Vital signs: Vital Signs Pulse Rate 95 10/08/22 19:32 Respiratory Rate 16 10/08/22 19:32 Blood Pressure 139/84 10/08/22 19:32 Pulse Oximetry 95 10/08/22 19:32 Oxygen Delivery Me thod Room Air 10/08/22 19:32 MDM - Weakness Medical Decision Making Patient was sent to the emergency department from [facility] because of concern about falls and potential for injury. There have been no history of syncope palpitations or other issues related to his falls. The patient states that his falls occur when he gets up quickly or attempts to ambulate without the use of his walker and he loses his balance. He denies any falls at has resulted in head injury or loss of consciousness etc. His clinical examination is very reassuring. He is very engaging and certainly did not display any findings of concern. His clinical examination is very reassuring with the only finding of note is he had some lower back tenderness without ecchymosis etc. Work-up was undertaken because of his age and history of falls to ensure that there is no occult intracranial injury and because of his clinical findings to ensure that there is no occult compression fracture etc. Imaging was reassuring. Laboratories revealed a chronic anemia essentially unchanged and he displayed no signs of arrhythmia or other concerning features while in the emergency department. Because of his anemia and chronic aspirin use albeit only at 81 mg it was felt that a trial off his aspirin might be helpful to determine if it is contributing to his chronic anemia. Patient is stable to be discharged at this time. Medical Records I reviewed the patient's medical records. Evidence of chronic anemia Lab Data I reviewed the patient's lab results. 10/08/22 18:50 10/08/22 18:[address] 10/08/22 17:44 IMPRESSION: No acute intracranial abnormality. Lumbar Spine CT 10/08/22 17:44 IMPRESSION: 1. No acute osseous abnormalities of the lumbar spine. 2. Staghorn calculus noted in the right kidney. Laboratory Results WBC 4.3 10^3/uL (4.0-10.0) 10/08/22 18:50 Corrected WBC Cancelled 10/08/22 18:25 RBC 3.52 10^6/uL (4.1-5.3) L 10/08/22 18:50 Hgb 10.4 g/dL (11.7-16.6) L 10/08/22 18:50 Hct 32.9 % (42.0-52.0) L 10/08/22 18:50 MCV 93.5 fl (80-94) 10/08/22 18:50 MCH 29.5 pg (28.0-34.0) 10/08/22 18:50 MCHC 31.6 g/dL (30.0-36.0) 10/08/22 18:50 RDW 13.1 % (12.1-15.1) 10/08/22 18:50 Plt Count 153 10^3/cmm (130-400) 10/08/22 18:50 MPV 9.4 fL (7.4-10.4) 10/08/22 18:50 Gran % Cancelled 10/08/22 18:25 Neut % (Auto) 31.8 % 10/08/22 18:50 Lymph % (Auto) 53.8 % 10/08/22 18:50 [place] % (Auto) 13.2 % 10/08/22 18:50 Eos % (Auto) 0.5 % 10/08/22 18:50 Baso % (Auto) 0.2 % 10/08/22 18:50 Neut # (Auto) 1.38 10^3/uL (1.8-7.7) L 10/08/22 18:50 Lymph # (Auto) 2.3 10^3/uL (0.8-4.8) 10/08/22 18:50 [place] # (Auto) 0.6 10^3/uL (0.2-0.9) 10/08/22 18:50 Eos # (Auto) 0.0 10^3/uL (0.0-0.8) 10/08/22 18:50 Baso # (Auto) 0.0 10^3/uL (0.0-0.1) 10/08/22 18:50 Absolute Gran (auto) Cancelled 10/08/22 18:25 Nucleated RBC % (auto) 0 % 10/08/22 18:50 Nucleated RBCs # 0.0 /100WBC 10/08/22 18:50 Sodium 142 mmol/L (136-145) 10/08/22 18:50 Potassium 3.7 mmol/L (3.5-5.1) 10/08/22 18:50 Chloride 103 mmol/L (98-107) 10/08/22 18:50 Carbon Dioxide 31 mmol/L (22-29) H 10/08/22 18:50 Anion Gap 11.7 (5-19) 10/08/22 18:50 BUN 17 mg/dL (8-23) 10/08/22 18:50 Creatinine 1.0 mg/dL (0.7-1.2) 10/08/22 18:50 GFR Calculation Not Reportable 10/08/22 18:50 Glucose 104 mg/dL (65-115) 10/08/22 18:50 Calculated Osmolality 296 mOsm/kg (285-295) H 10/08/22 18:50 Calcium 8.7 mg/dL (8.5-10.5) 10/08/22 18:50 EKG Data EKG 1: I personally reviewed and interpreted this EKG as follows: Interpretation: EKG contemporaneously reviewed revealed a ventricular rate of 69 bpm. Normal RI interval, QRS duration, corrected QT interval. Normal axis. Consistent with normal sinus rhythm without any acute ST-T wave changes or other findings suggesting ischemia. Discharge Plan Discharge Patient Disposition: LTCH w Plan Readm Clinical Impression: Fall from ground level, Anemia Condition: Stable Prescriptions: Discontinued aspirin 81 mg tablet,delayed release (DR/EC) 81 mg PO DAILY No Action Ensure Plus 0.05-1.5 gram-kcal/mL liquid 1 ea PO BID atorvastatin 80 mg tablet 80 mg PO DAILY carbamazepine 200 mg tablet 200 mg PO BID cholecalciferol (vitamin D3) 50 mcg (2,000 unit) capsule 50 mcg PO DAILY ferrous sulfate 325 mg (65 mg iron) tablet 325 mg PO DAILY folic acid 1 mg tablet 1 mg PO DAILY isosorbide mononitrate 30 mg tablet extended release 24 hr 30 mg PO DAILY levetiracetam 750 mg tablet 750 mg PO BID mirtazapine 15 mg tablet 7.5 mg PO BEDTIME omeprazole 20 mg capsule,delayed release(DR/EC) 20 mg PO DAILY pentoxifylline 400 mg tablet extended release 400 mg PO TID Rx Instructions: must administer with a meal/food trazodone 100 mg tablet 100 mg PO BEDTIME Zofran 4 mg Tablet 4 mg PO Q4H PRN (Reason: Nausea) Milk of Magnesia 400 mg/5 mL Suspension 30 ml PO DAILY PRN (Reason: Constipation) Dulcolax (bisacodyl) 10 mg Suppository 10 mg RI DAILY PRN (Reason: Constipation) Fleet Enema 19-7 gram/118 mL Enema 118 ml RI DAILY PRN (Reason: Constipation) Discharge Orders: Discharge ED (Routine); Ordered 10/08/22 Ordered By: Sundar Harvey Discharge Diet: Usual diet Discharge Activity: Use walker/crutches as instructed Activity Restrictions/Additional Instructions: As we discussed your evaluation in the emergency department did not reveal any evidence of serious injury from your falls. You have a chronically low blood count and I have recommended that we temporarily stop your aspirin to see if that helps improve that condition. We recommend you continue to use your walker and other assist devices when you transfer from bed to ambulation. If you develop any new or worsening symptoms you are welcome to return to the emergency department for reevaluation. Coding Level of Care Code ED Cam Maker for Cyn Tadeo
--- NOTE | 2022-10-08 18:33 | ECG_ITS ---
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 Measurements Intervals [place] Rate: 69 P: 55 TX: 196 QRS: 48 QRSD: 102 T: 56 QT: 376 QTc: 404 Interpretive Statements SINUS RHYTHM Compared to ECG 03/01/2021 15:07:14 Sinus bradycardia no longer present Electronically Signed On 10-10-2022 16:29:44 CDT by Chantel Camp M.D. [id number]
[2022-10-08 19:08] LABS: Basophils % 0.2 %; Eosinophils % 0.5 %; Hematocrit 32.9 % (42.0-52.0); Hemoglobin 10.4 g/dL (11.7-16.6); Lymphocytes # 2.3 10^3/uL (0.8-4.8); Lymphocytes % 53.8 %; Mean Corpuscular HGB Conc 31.6 g/dL (30.0-36.0); Mean Corpuscular Hemoglobin 29.5 pg (28.0-34.0); Mean Corpuscular Volume 93.5 fl (80-94); Mean Platelet Volume 9.4 fL (7.4-10.4); Monocytes # 0.6 10^3/uL (0.2-0.9); Monocytes % 13.2 %; Neutrophils # 1.38 10^3/uL (1.8-7.7); Neutrophils % 31.8 %; Nucleated Red Blood Cells % 0 %; Platelet Count 153 10^3/cmm (130-400); Red Blood Count 3.52 10^6/uL (4.1-5.3); Red Cell Distribution Width 13.1 % (12.1-15.1); White Blood Count 4.3 10^3/uL (4.0-10.0)
[2022-10-08 19:25] LABS: Anion Gap 11.7 (5-19); Blood Urea Nitrogen 17 mg/dL (8-23); Calcium 8.7 mg/dL (8.5-10.5); Carbon Dioxide 31 mmol/L (22-29); Chloride 103 mmol/L (98-107); Glucose 104 mg/dL (65-115); Osmolality Calculated 296 mOsm/kg (285-295); Potassium 3.7 mmol/L (3.5-5.1); Sodium 142 mmol/L (136-145)
[2022-10-08 19:32] VITALS: BP 139/84; PULSE 95; RESP 16; O2SAT 95
--- NOTE | 2022-10-08 20:25 | PC.NURSE ---
pt noted by staff to be exiting bed from the end. pt redirected into bed. pt reports needing to use restroom. pt states unable to urinate laying in bed, attempted to stand pt but pt unable to stand by himself. after pt was placed back in bed with side rails up, bedside commode brought to room. pt was a max assist transferring to bedside commode. pt able to tolerate seated position, but unable to be left due to leaning forward and high fall risk. 3 staff members assisted in transferring pt back into bed.
[2022-10-08 21:50] VITALS: PULSE 93; RESP 18; O2SAT 96
--- NOTE | 2022-10-09 13:38 | DCPLANNER ---
manager material was triggered to call patient due to no primary care physician - patient is at [facility] - patient sees Dr. Rafal Saunders
== END 2022-10-08 21:52 ==
PROVIDERS: Emergency Provider Emergency Medicine; PCP Internal Medicine
DX: D64.9 Anemia, unspecified (principal); W18.30XA Fall on same level, unspecified, initial encounter; E78.5 Hyperlipidemia, unspecified; Z87.891 Personal history of nicotine dependence
CPT/HCPCS: 36415; 70450; 72131; 80048; 85025; 93005; 99285